=== PATIENT | female | born 1975 | race Caucasian/White ===

== ENCOUNTER 2016-11-06 06:03 | Day surgery (SDC) | payer OTHER ==
--- NOTE | 2016-11-04 06:23 | HP ---
Dotty Holman : 1975 DATE OF ADMISSION: 11/06/2016 PREOPERATIVE DIAGNOSES: 1. Undesired fertility. 2. History of illicit drug use. PLANNED PROCEDURE: Laparoscopic tubal sterilization. HISTORY OF PRESENT ILLNESS: Dotty Holman (Marie) is a 41-year-old G4, P2-0-2-2 who came into our office specifically requesting sterilization. She has completed her family. She has a 6-year-old and a 4-year-old. She is very definite that she does not want any more children. She has had a Mirena intrauterine device placed after her 4-year-old was born and initially she did okay. Her periods were fairly easy, but then for the past year and a half she has been losing significant weight. She just did not feel good. She had been having more nonspecific lower abdominal pain. Because of this, she had her Mirena intrauterine device removed and she has been gradually feeling better. She absolutely does not want any more children and understands that if we tie her tubes it is a permanent form of contraception. The risks and possible complications of the surgery as well as benefits have been reviewed and the patient has given her consent. Marie does give a history of being very sensitive to any foreign bodies on her skin; even stainless steel post for earrings can cause irritation of her ears. She is requesting that we do this surgery without leaving any foreign body inside if we can. She would therefore prefer fulguration of the Fallopian tubes with the Kleppinger bipolar cautery. If for some reason this is not possible then we will either use the Filshie clips or the Falope rings. We have talked about the risks of the laparoscopy. The plan will be to evaluate her pelvis and intraabdominal content, but mainly our goal is tubal ligation. 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 She has used a control pill in past and has had irregular unpredictable bleeding. She prefers not to use any hormonal contraception. Currently, the patient and her are using condoms and are very motivated not to get . PAST MEDICAL HISTORY: The patient denies any major medical problems. Generally she is very healthy. She has lost a fair amount of weight, but was able to put back on about 15 pounds and is feeling fairly normal. She unfortunately is a smoker and is trying to cut down. She smokes about half of a pack of cigarettes per day. She also does like to drink her caffeine, but she denies any other regular habits. She does not drink a significant amount of alcohol. She denies any recreational drug use other than occasional use of marijuana. The patient does give a prior history of heroin and other drug abuse. 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 Ever since then she has been extremely careful to avoid any narcotics. She definitely does not want to go down that path again. In 2006 the patient had a compression fracture of T7 and about a year later she ended having a back surgery. She had terrible pain before. She also had significant pain after the surgery. She was placed on some pain medicine, but it was not adequate and she had a difficult recovery. She wants to be very proactive this time. She does not want to take any Percocet, Oxycodone, or hydrocodone. She thinks that she will probably do better if she has Tramadol and she will minimize its use. She will also try to wean off very quickly. Mainly she will use high dose ibuprofen for pain control after the surgery. The patient has already been given prescriptions for those two medications. 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 She typically works 8 to 15 hours a day and is quite active. She is planning to try to return to work three days after the surgery and this was discussed. She will have a flexible schedule that day in case this is not possible. The patient is having regular predictable periods each month. Her last period started on October 13, 2016. Usually her bleeding only lasts 5 to 6 days. She occasionally has some cramping, but it is not problematic. FAMILY HISTORY: Significant for hypertension and diabetes. There is also a family history of breast cancer and ovarian cancer as well as mental health issues. This does not sound like a genetic predisposition in her family. SOCIAL HISTORY: The patient is in a stable mutual monogamous relationship. She and her are committed to raising these two children. They do not want an unexpected . PHYSICAL EXAMINATION: VITAL SIGNS: Blood pressure 106/60, pulse and respirations normal, weight 119 pounds. GENERAL: Marie is a somewhat pale slender, muscular, angular woman in no acute distress. LUNGS: Clear to auscultation. No costovertebral angle tenderness. No wheezing, no rales. Good inspiration. HEART: Regular rate and rhythm. No murmur was heard. BREAST: Normal. ABDOMEN: Soft, flat, normal bowel sounds, nontender. No organomegaly. No inguinal or supraclavicular adenopathy. Patient has never had any abdominal surgery. She does have multiple stretch march. PELVIC: Not performed. EXTREMITIES: Normal. IMPRESSION: Marie Holman is a 41-year-old choosing not to have any more children. She is being admitted for laparoscopic tubal sterilization on 11/06/2016. She has been given the usual preoperative instructions and consent has been signed. She will try to minimize her smoking prior to that surgery. JOB: [id number]
[~2016-11-06 06:03] MED LIST: IV START KIT ONE; LACTATED RINGERS 1,000 ML ONE
[2016-11-06] MEDS ORDERED: LIDOCAINE 1% 2 ML VIAL ID PRN (06:07)
[2016-11-06] MEDS ORDERED: LACTATED RINGERS 1,000 ML IV SCH ×3 (06:07→08:48)
[2016-11-06] MEDS ORDERED: FENTANYL 5 ML ONE (06:36)
[2016-11-06] MEDS ORDERED: MIDAZOLAM HCL 1 MG/ML 2ML VIAL ONE (06:37)
[2016-11-06] MEDS ORDERED: BUPIVACAINE 0.25% EPI PF 30 ML VIAL ONE (06:53)
[2016-11-06] MEDS ORDERED: ALBUTEROL/IPRATROPIUM 2.5/0.5 MG 3 ML/EACH DOSE ONE (06:56)
[2016-11-06] MEDS ORDERED: SCOPOLAMINE 1.5 MG/72 HR 1 EACH PATCH TD ONE (06:57)
[2016-11-06] MEDS ORDERED: SODIUM CHLORIDE 0.9% FLUSH 10 ML ONE (07:14)
[2016-11-06] MEDS ORDERED: KETAMINE HCL UD SYRINGE 100 MG/2 ML IV ONE (07:30)
[2016-11-06] MEDS ORDERED: PROPOFOL 20 ML IV ONE (07:32)
[2016-11-06] MEDS ORDERED: ROCURONIUM BROMIDE 10 MG/ML DOSE IV ONE (07:32)
[2016-11-06] MEDS ORDERED: DIPHENHYDRAMINE HCL 50 MG/1 ML VIAL ONE (07:32)
[2016-11-06] MEDS ORDERED: ONDANSETRON 4 MG/2ML 2 ML VIAL ONE (07:32)
[2016-11-06] MEDS ORDERED: DEXAMETHASONE SOD PHOS 4 MG/1 ML VIAL ONE (07:32)
[2016-11-06] MEDS ORDERED: LIDOCAINE 2% (MULTI DOSE) 10 ML VIAL ONE (07:33)
[2016-11-06] MEDS ORDERED: EPHEDRINE SULFATE 50 MG/ML 1ML VIAL ONE (07:36)
[2016-11-06] MEDS ORDERED: FENTANYL 100 MCG/2 ML VIAL IV PRN (07:43)
[2016-11-06] MEDS ORDERED: NALOXONE HCL 0.4 MG/ML VIAL IV PRN (07:43)
[2016-11-06] MEDS ORDERED: HYDROMORPHONE HCL 1 MG/ML SYRINGE IV PRN ×2 (07:43→08:48)
[2016-11-06] MEDS ORDERED: ATROPINE SULFATE 0.4 MG/1 ML VIAL IV PRN (07:43)
[2016-11-06] MEDS ORDERED: PROMETHAZINE HCL 25 MG/ML VIAL IM PRN (07:43)
[2016-11-06] MEDS ORDERED: GLYCOPYRROLATE 0.2 MG/ML 1ML VIAL ONE (08:03)
[2016-11-06] MEDS ORDERED: KETOROLAC TROMETHAMINE 30 MG/ML 1 ML VIAL ONE (08:03)
[2016-11-06] MEDS ORDERED: NEOSTIGMINE METHYLSULFATE 1 MG/ML DOSE ONE (08:03)
--- NOTE | 2016-11-06 08:33 | PCMBPN ---
Brief Post Op Note: Date of Procedure: 11/06/16 Start Time: Preoperative Diagnosis: 1. Request for sterilization Postoperative Diagnosis: 1. Same Procedure: LTS (Kleppinger bipolar) Surgeon: Mony Vee Assist:Tayla Melara MD Anesthesia: Isaiah Olivo CRNA General anesthesia Findings: Bulky cervix and uterus, normal tubes and ovaries, normal appendix Condition: Good Complications: None IV Fluids: 1200 mLs of LR Urine Output: 10 mLs Estimated Blood Loss: 2 mLs Tourniquet Time: N/A Specimens: N/A Implants: N/A Drains: N/A
[2016-11-06] MEDS ORDERED: ONDANSETRON 4 MG/2ML 2 ML VIAL IV PRN (08:48)
[2016-11-06] MEDS ORDERED: TRAMADOL HCL 50 MG TABLET PO PRN (08:48)
[2016-11-06] MEDS ORDERED: KETOROLAC TROMETHAMINE 30 MG/ML 1 ML VIAL IV PRN (08:48)
--- NOTE | 2016-11-06 08:56 | PDOC5 ---
Hospital Course: ADMIT DATE: DISCHARGE DATE: 11/06/2016 ADMISSION DIAGNOSES: Request for sterilization PROCEDURES: Laparoscopic sterilization with Kleppinger bipolar cautery. HISTORY OF PRESENT ILLNESS: 41 year old presenting with a firm request for sterilization. She also preferred no foreign body for sterilization technique. HOSPITAL COURSE: The patient was pre-treated with a nebulizer. Then general anesthesia was given and the pt was intubated with a small tube. Using a single subumbilical port, the operative scope was used to evaluate the uterus, tubes and ovaries. Both tubes were cauterized without difficulty. Pt did well post- op. By day of discharge the patient is ambulating, eating, voiding, and passing flatus without difficulty. Pain is controlled. 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 - Discharge Plan Condition: Good Disposition: Home Discharge Medications: Pt already given prescriptions for tramadol and ibuprofen. Follow-Up: Mony Vee MD [Staff Physician] - In 7-10 days
[2016-11-06] MEDS ORDERED: TRAMADOL HCL 50 MG TABLET ONE (09:30)
[2016-11-06] MEDS ORDERED: HYDROMORPHONE HCL 0.5 MG/0.5 ML SYRINGE IV PRN (09:40)
--- NOTE | 2016-11-06 10:24 | OP ---
Dotty Holman : 1975 DATE OF SURGERY: 11/06/2016 PREOPERATIVE DIAGNOSIS: Request for sterilization. POSTOPERATIVE DIAGNOSIS: Request for sterilization. PROCEDURE PERFORMED: Laparoscopic tubal sterilization (Kleppinger bipolar cautery). SURGEON: Dr. Mony Vee ACTUARIAL INTERNSHIP: Dr. Melara ANESTHESIA: General. RELATIONSHIP ASSOCIATE: Isaiah Olivo CRNA ESTIMATED BLOOD LOSS: Minimal. FINDINGS: The patient was noted to have a somewhat bulky cervix and bulky anteverted uterus. Fallopian tubes and ovaries appeared normal. The appendix was also seen and appeared normal. PROCEDURE: On the morning of 11/06/2016 after the usual preoperative preparations were completed in the preoperative area, Marie was brought to the operating room and placed on the operating room table in a supine position. The usual monitoring leads were placed. General anesthesia was then administered and the patient was intubated without difficulty. Once the patient was adequately anesthetized her position was adjusted a little bit lower on the table and her legs were positioned in the adjustable stirrups. The perineum and vagina were prepped followed by an abdominal prep in the usual fashion for a TIME STUDY OBSERVER laparoscopy. The patient was draped. A timeout was then performed verifying proper patient, procedure, position, personnel, and equipment. After verifying an adequate level of anesthesia the cervix was visualized with a speculum. It was grasped on the anterior lip with a tenaculum. The uterine manipulator was then inserted in the usual fashion through the cervix. The balloon was inflated. Instruments were then removed from the vagina and gloves were changed. Attention was then paid to the laparoscopic part of this surgery. A 11 mm incision was made just below the umbilicus with the scalpel. The Varess needle was placed through this into the peritoneal cavity and approximately 2.5 liters of air were instilled under low pressure. The Varess needle was then removed and the 11 mm port was carefully inserted under direct visualization. The intraperitoneal contents were inspected and there was no evidence of any intraperitoneal injury. There was no bleeding. The fundus of the uterus, the Fallopian tubes, and ovaries were easy to visualize and appeared normal. The appendix and cecum were also noted to be very normal. The patient was then placed in the Trendelenburg position. Using the operative scope the Kleppinger bipolar cautery was inserted and the right Fallopian tube was visualized in its entire length. The Fallopian tube was then grasped in the isthmic portion and was cauterized in three adjacent areas by Dr. Melara. The exact same procedure was then done on the left side by myself verifying adequate destruction of the Fallopian tubes on either side. The Kleppinger was removed followed by the scope. All the air was allowed to escape through the subumbilical port while the patient was being given several deep breaths by the reducing salon attendant. After the abdomen was adequately emptied of air the port was removed. A deep suture of 2-0 Vicryl was placed in the fascia and then the skin was closed with some 4-0 Monocryl. Steri-Strips were placed followed by a bandage. I also did inject the subumbilical incision area with some 0.5% Marcaine with epinephrine for postoperative comfort. The uterine manipulator was removed. The patient was then cleaned up. She was taken out of the dorsolithotomy position. She was then gently awoken from anesthesia and extubated. She was taken to the recovery room in stable condition. JOB: [id number]
== END 2016-11-06 10:10 | disposition home or self-care (01) ==
LOC: SDC 06:03
PROVIDERS: ATTEND Obstetrics & Gynecology
PROC: 0U574ZZ Destruction of Bilateral Fallopian Tubes, Percutaneous Endoscopic Approach (ICD-10-PCS; principal; 2016-11-06)
DX: Z30.2 Encounter for sterilization (principal); Z72.0 Tobacco use; Z80.3 Family history of malignant neoplasm of breast; Z80.41 Family history of malignant neoplasm of ovary
CPT/HCPCS: 58670; J1200; J3010; J1100; A9270 ×2; J1885; J2250; J2405; J7120; J2001